=== PATIENT | male | born 1940 | race Caucasian/White ===

== ENCOUNTER 2022-12-27 07:48 | Day surgery (SDC) | payer OTHER, MEDICARE ==
[2022-12-22 10:10] VITALS: BMI 31.8
[2022-12-27 08:31] VITALS: TEMP 97.8
[2022-12-27] MEDS ORDERED: ceFAZolin SODIUM 1 GM VIAL ONE ×2 (08:42→09:30)
[2022-12-27] MEDS ORDERED: ONDANSETRON 4 MG/2 ML VIAL ONE (08:42)
[2022-12-27] MEDS ORDERED: DEXAMETHASONE SOD PHOSPHATE 4 MG/1 ML VIAL ONE (08:42)
[2022-12-27] MEDS ORDERED: PROPOFOL 40 ML ONE (08:43)
[2022-12-27] MEDS ORDERED: MIDAZOLAM HCL 2 MG/2 ML SINGLE DOSE VIAL ONE (08:43)
[2022-12-27] MEDS ORDERED: TETRACAINE 0.5% OPHTH SOLN 2 ML BOTTLE ONE (09:30)
[2022-12-27] MEDS ORDERED: ERYTHROMYCIN 0.5% OPHTHALMIC OINTMENT 3.5 GM TUBE ONE (09:31)
[2022-12-27] MEDS ORDERED: LIDOCAINE 1%-EPI 1:100,000 30 ML MDV IJ ONE (09:31)
[2022-12-27] MEDS ORDERED: POVIDONE-IODINE 5% OPHTHALMIC PREP 30 ML SOLUTION ONE (09:31)
[2022-12-27] MEDS ORDERED: BUPIVACAINE HCL/PF 0.5% (5MG/ML) 10 ML VIAL ONE (09:41)
[2022-12-27] MEDS ORDERED: hydrALAZINE HCL 20 MG/ML VIAL ONE (10:14)
[2022-12-27] MEDS ORDERED: PROPOFOL 20 ML ONE ×4 (10:57→12:25)
[2022-12-27] MEDS ORDERED: PROPOFOL 60 ML ONE (12:35)
[2022-12-27] MEDS ORDERED: oxyCODONE HCL 5 MG TABLET PO PRN (14:22)
[2022-12-27] MEDS ORDERED: ONDANSETRON 4 MG/2 ML VIAL IVPUSH PRN (14:22)
[2022-12-27] MEDS ORDERED: FENTANYL CITRATE/PF 50 MCG/ML VIAL ONE ×2 (14:23→14:45)
[2022-12-27] MEDS ORDERED: LACTATED RINGERS SOLUTION 1,000 ML IV SCH (14:30)
[2022-12-27] MEDS ORDERED: ALBUTEROL SO4 0.083% IH SOL 2.5 MG/3 ML VIAL.NEB. NEB ONE ×2 (16:24→16:30)
[2022-12-27 17:22] VITALS: RESP 16
[2022-12-27 17:24] VITALS: BP 146/58; PULSE 84
== END 2022-12-27 17:00 | disposition home or self-care (01) ==
LOC: FASU 07:48
PROVIDERS: ATTEND Ophthalmology
PROC: 08SP0ZZ Reposition Left Upper Eyelid, Open Approach (ICD-10-PCS; 2022-12-27)
PROC: 08SN0ZZ Reposition Right Upper Eyelid, Open Approach (ICD-10-PCS; 2022-12-27)
PROC: 08SP0ZZ Reposition Left Upper Eyelid, Open Approach (ICD-10-PCS; principal; 2022-12-27 10:20)
PROC: 08SN0ZZ Reposition Right Upper Eyelid, Open Approach (ICD-10-PCS; 2022-12-27 10:20)
DX: H02.423 Myogenic ptosis of bilateral eyelids (principal); H02.835 Dermatochalasis of left lower eyelid; H02.834 Dermatochalasis of left upper eyelid; H02.831 Dermatochalasis of right upper eyelid; H02.832 Dermatochalasis of right lower eyelid
CPT/HCPCS: 82962; 88304-TC; 94760

== ENCOUNTER 2023-04-18 06:02 | Day surgery (SDC) | payer OTHER, MEDICARE ==
[2023-04-11 13:28] VITALS: BMI 31.8
[2023-04-18] MEDS ORDERED: POVIDONE-IODINE 5% OPHTHALMIC PREP 30 ML SOLUTION ONE (07:02)
[2023-04-18] MEDS ORDERED: ERYTHROMYCIN 0.5% OPHTHALMIC OINTMENT 3.5 GM TUBE ONE (07:02)
[2023-04-18] MEDS ORDERED: ceFAZolin SODIUM 1 GM VIAL ONE ×2 (07:02→07:28)
[2023-04-18] MEDS ORDERED: TETRACAINE 0.5% OPHTH SOLN 2 ML BOTTLE ONE (07:02)
[2023-04-18] MEDS ORDERED: LIDOCAINE 1%-EPI 1:100,000 30 ML MDV IJ ONE (07:03)
[2023-04-18] MEDS ORDERED: MIDAZOLAM HCL 2 MG/2 ML SINGLE DOSE VIAL ONE (07:28)
[2023-04-18] MEDS ORDERED: PROPOFOL 40 ML ONE (07:28)
[2023-04-18] MEDS ORDERED: DEXAMETHASONE SOD PHOSPHATE 4 MG/1 ML VIAL ONE (07:52)
[2023-04-18] MEDS ORDERED: ONDANSETRON 4 MG/2 ML VIAL ONE (07:52)
[2023-04-18] MEDS ORDERED: FENTANYL CITRATE/PF 50 MCG/ML VIAL ONE (09:11)
[2023-04-18] MEDS ORDERED: ONDANSETRON 4 MG/2 ML VIAL IVPUSH PRN (09:16)
[2023-04-18] MEDS ORDERED: oxyCODONE HCL 5 MG TABLET PO PRN (09:16)
[2023-04-18] MEDS ORDERED: LACTATED RINGERS SOLUTION 1,000 ML IV SCH (09:30)
[2023-04-18 10:49] VITALS: PULSE 60; RESP 18; TEMP 96.9
[2023-04-18 11:10] VITALS: BP 150/56
== END 2023-04-18 11:34 | disposition home or self-care (01) ==
LOC: FASU 06:02
PROVIDERS: ATTEND Ophthalmology
PROC: 08SN0ZZ Reposition Right Upper Eyelid, Open Approach (ICD-10-PCS; principal; 2023-04-18 08:02)
DX: H02.401 Unspecified ptosis of right eyelid (principal); H02.89 Other specified disorders of eyelid
CPT/HCPCS: 94760